=== PATIENT | male | born 1990 | race Caucasian/White ===

== ENCOUNTER 2016-11-07 06:51 | Emergency (ER) | payer BC ==
[~2016-11-07] VITALS: Ht 180.3 cm; Wt 74.0 kg
[2016-11-07 07:02] VITALS: TEMP 36.7; Ht 180.3 cm; Wt 74.0 kg
[2016-11-07] MEDS ORDERED: SODIUM CHLORIDE 0.9% 1000ML 1,000 ML IV STA (07:19)
[2016-11-07] MEDS ORDERED: KETOROLAC TROMETHAMINE 30 MG/ML VIAL IV STA (07:19)
--- NOTE | 2016-11-07 07:25 | EMERGENCY ROOM VISIT NOTE ---
History First contact with patient: 07:09 Chief Complaint: FACIAL PAIN/INJURY Stated Complaint: SWOLLEN LEFT CHEEK History of Present Illness The patient is a 26 year old male who presents to the Emergency Room with complaints of left-sided facial swelling and pain that started 2 days ago. Patient states it initially felt like he was getting a pimple on his left cheek , however it never came to a head and began to get more swollen and painful since last night. He describes the pain as throbbing, constant, 5/10. He has taken ibuprofen and applied ice with no improvement. He denies any dental pain or issues inside the mouth, denies any drainage. He denies any fevers or chills , nausea/vomiting, difficulty swallowing or breathing, tongue or throat swelling , breath, chest pain, dizziness or passing out. He states that his tetanus is up-to-date, received 2 years ago. He does not use any tobacco products. Review of Systems A complete 10 point review of systems was reviewed with the patient with pertinent positives and negatives as per history of present illness. All else were negative. Social History Smoking Status: Never Smoker Current/Historical Medications Scheduled Amoxicillin & Pot Clavulanate (Augmentin 875-125 mg), 1 TAB PO BID Allergies Coded Allergies: No Known Allergies (Unverified , 11/07/16) Physical Exam Vital Signs Date Time Temp Pulse Resp B/P (MAP) Pulse Ox O2 Delivery O2 Flow Rate FiO2 11/07/16 08:28 88 137/78 98 Room Air 11/07/16 07:02 36.7 110 20 135/71 97 Room Air Physical Exam CONSTITUTIONAL: No acute distress. Well appearing and well nourished. Alert and oriented X 4 with normal affect. HEENT: Normocephalic, atraumatic. Pupils equal, round and reactive to light, EOMI. TMs normal. Pharynx normal. Moist mucous membranes. No dental caries, fractures, periapical abscess, or acute gingivitis noted within the mouth. No edema of the mouth floor. FACE: There is moderate swelling of the left face just lateral to the mouth extending up into the cheek, mild erythema and induration, no definite fluctuance, tender to palpation. No sinus tenderness to palpation. NECK: Supple, full active range of motion without discomfort. RESPIRATORY: Clear to auscultation bilaterally with no wheezing, crackles, rhonchi or stridor. Equal expansion bilaterally. CARDIOVASCULAR: Regular rate and rhythm with no murmurs, rubs or gallops. Normal peripheral perfusion. No edema. GASTROINTESTINAL: Soft, nontender, nondistended. Bowel sounds present in all quadrants. MUSCULOSKELETAL: Full range of motion of all joints without discomfort. INTEGUMENTARY: No rash or other significant dermatologic conditions noted. NEUROLOGIC: Cranial nerves II-XII grossly intact. No focal neurologic deficits noted. Normal speech. Medical Decision & Procedures Laboratory Results 11/07/16 07:29 Red Blood Count 5.25, Mean Corpuscular Volume 83.2, Mean Corpuscular Hemoglobin 29.3, Mean Corpuscular Hemoglobin Concent 35.2, Mean Platelet Volume 11.4, Neutrophils (%) (Auto) 61.9, Lymphocytes (%) (Auto) 22.0, Monocytes (%) (Auto) 13.4, Eosinophils (%) (Auto) 2.3, Basophils (%) (Auto) 0.2, Neutrophils # (Auto ) 6.90, Lymphocytes # (Auto) 2.45, Monocytes # (Auto) 1.49, Eosinophils # (Auto ) 0.26, Basophils # (Auto) 0.02 11/07/16 07:29 Test 11/07/16 07:29 White Blood Count 11.14 K/uL (4.8-10.8) Red Blood Count 5.25 M/uL (4.7-6.1) Hemoglobin 15.4 g/dL (14.0-18.0) Hematocrit 43.7 % (42-52) Mean Corpuscular Volume 83.2 fL (80-100) Mean Corpuscular Hemoglobin 29.3 pg (25-34) Mean Corpuscular Hemoglobin Concent 35.2 g/dl (32-36) Platelet Count 162 K/uL (130-400) Mean Platelet Volume 11.4 fL (7.4-10.4) Neutrophils (%) (Auto) 61.9 % Lymphocytes (%) (Auto) 22.0 % Monocytes (%) (Auto) 13.4 % Eosinophils (%) (Auto) 2.3 % Basophils (%) (Auto) 0.2 % Neutrophils # (Auto) 6.90 K/uL (1.4-6.5) Lymphocytes # (Auto) 2.45 K/uL (1.2-3.4) Monocytes # (Auto) 1.49 K/uL (0.11-0.59) Eosinophils # (Auto) 0.26 K/uL (0-0.5) Basophils # (Auto) 0.02 K/uL (0-0.2) RDW Standard Deviation 37.5 fL (36.4-46.3) RDW Coefficient of Variation 12.4 % (11.5-14.5) Immature Granulocyte % (Auto) 0.2 % Immature Granulocyte # (Auto) 0.02 K/uL (0.00-0.02) Anion Gap 9.0 mmol/L (3-11) Est Creatinine Clear Calc Drug Dose 107.4 ml/min Estimated GFR () 107.6 Estimated GFR (Non- 92.8 BUN/Creatinine Ratio 19.6 (10-20) Calcium Level 9.0 mg/dl (8.5-10.1) Medications Administered Medications (Trade) Dose Ordered Sig/Manish Route Start Time Stop Time Status Last Admin Dose Admin Ampicillin Sodium/ Sulbactam Sodium 3000 mg/Sodium Chloride 108 ml @ 200 mls/hr ONE ONCE IV 11/07/16 07:30 11/07/16 08:02 DC 11/07/16 07:40 200 MLS/HR Ketorolac Tromethamine (Toradol Inj) 15 mg NOW STAT IV 11/07/16 07:19 11/07/16 07:23 DC 11/07/16 07:39 15 MG Sodium Chloride 1,000 ml @ 999 mls/hr Q1H1M STAT IV 11/07/16 07:19 11/07/16 08:19 DC 11/07/16 07:39 999 MLS/HR Procedure I examined the patient. Verbal consent was obtained to perform the procedure. Bedside ultrasound was used to identify and localize the fluid collection. After chlorhexidine cleansing, a 20-gauge needle was gently inserted into the abscess with constant back pressure on a 3 mL syringe. A small amount of purulent material was aspirated. Additional purulent drainage was expressed by light pressure. The patient reported immediate improvement of his pain. The area was cleaned with sterile saline and dressed with bacitracin and a sterile gauze bandage. The patient tolerated the procedure well. Medical Decision CC: Patient presenting with complaint of facial swelling and pain Interpretation of Labs: Mild leukocytosis with shift, no anemia, mild hyperglycemia, no other significant electrolyte abnormalities, normal renal function. Differential Diagnosis: Includes, but not limited to cellulitis, abscess, dental infection, sinusitis, among others. Medication Reconciliation: I attest that I have personally reviewed the patient' s current medication list. Vital signs review: I reviewed the patient's vital signs and interpret them as follows: T: Afebrile; BP: Normotensive; HR: Tachycardic; RR: Within normal limits; Pulse Ox: Within normal limits on room air. Summary: Patient was evaluated at bedside, history of physical exam performed. He is tachycardic, which he states is because he is nervous and hospitals. Patient is alert and cooperative, no acute distress. Moderate swelling and erythema to the left face extending from the mouth to the mid left cheek. Orders were placed at bedside for labs, IV fluid, IV Unasyn, Toradol to evaluate and treat for facial cellulitis. Labs reviewed as above, no significant abnormalities. Needle aspiration and drainage of the abscess with ultrasound guidance, with improvement in pain. See procedure note for more details. Patient discussed with Dr. Ramesh, who agrees with my assessment and plan. Patient reassessed multiple times throughout ED stay, the patient remained well- appearing and reports improved pain. Tachycardia resolving after IV fluids. Patient was updated on all results and plan for discharge home. He was encouraged to follow closely with his PCP in the next 2-3 days for recheck. He verbalized understanding. Patient discharged home in stable condition. Impression Primary Impression: Cellulitis and abscess of face Departure Information Dispostion Home / Self-Care Condition GOOD Prescriptions Amoxicillin & Pot Clavulanate (Augmentin 875-125 mg) 1 Tab Tab 1 TAB PO BID for 10 Days, #20 TAB Prov: Roxana Coello CRNP 11/07/16 Referrals No Doctor, Assigned (PCP) Patient Instructions ED Cellulitis Facial, ED Diet High Potassium, [employer] Additional Instructions You were seen in the Emergency Department for facial cellulitis. You have been prescribed Augmentin to be taken twice a day for 10 days. This medication is an antibiotic. Stop these medications and contact a medical provider if you were to develop any significant adverse side effects including: wheezing, shortness of breath, passing out, vomiting, or a diffuse rash. Always take antibiotics as directed and COMPLETE the ENTIRE course regardless of the improvement of your symptoms. Diarrhea often occurs with some antibiotics, you may take a probiotic or eat yogurt daily while you're on this medication to help prevent diarrhea. Look for signs of worsening infection of the wound including: increased pain, swelling, foul discharge, streaking, or fevers/chills/feeling ill. If any of these are noticed you should return to the Emergency Department for further assessment and treatment. For pain control, you can use the following [id number] medicines (if >12 yo): - Extra strength (500mg/tab) Tylenol (acetaminophen) 1-2 tabs every 6-8 hours as needed. Do not exceed 6 tablets in a 24 hour period. Avoid taking more than 3 grams (3000 mg) of Tylenol per day. This includes any other sources of acetaminophen you may take on a regular basis. - Regular strength (200 mg/tab) Advil (ibuprofen) 1-2 tabs every 4-6 hours as needed. Do not exceed a dose of 3200 mg per day. Apply warm compresses to the area to help with pain and also to help improve the infection. Follow up with your PCP in 2 days for recheck, or sooner for worsening symptoms. Return to the emergency department if your symptoms worsen despite treatment course outlined above.
[2016-11-07] MEDS ORDERED: AMPICILLIN/SULBACTAM SOD INJ 3,000 MG in SODIUM CHLORIDE 0.9% 100ML 100 ML IV ONE (07:30)
[2016-11-07 07:48] LABS: BASO % 0.2 %; BASO ABS # 0.02 K/uL (0-0.2); COMPLETE YES; EOS % 2.3 %; HEMATOCRIT 43.7 % (42-52); IG% 0.2 %; LYMPH ABS # 2.45 K/uL (1.2-3.4); MEAN CELL VOLUME 83.2 fL (80-100); MEAN CORPUSCULAR HEMOGLOBIN 29.3 pg (25-34); MEAN CORPUSCULAR HGB CONC 35.2 g/dl (32-36); MEAN PLATELET VOLUME 11.4 fL (7.4-10.4); MONO % 13.4 %; NEUT % 61.9 %; PLATELET COUNT 162 K/uL (130-400); RED BLOOD COUNT 5.25 M/uL (4.7-6.1); WHITE BLOOD COUNT 11.14 K/uL (4.8-10.8)
[2016-11-07 08:02] LABS: BUN/CREATININE RATIO 19.6 (10-20); CREATININE 1.1 mg/dl (0.60-1.40); POTASSIUM 3.2 mmol/L (3.5-5.1)
[2016-11-07] MEDS ORDERED: AMOX875T PO (08:10)
[2016-11-07 08:28] VITALS: BP 137/78; PULSE 88; O2SAT 98
[2016-11-07] MEDS ORDERED: IBUP-103 PO (16:51)
[2016-11-07] MEDS ORDERED: SULF800T23 PO (19:15)
== END 2016-11-07 08:43 | disposition home or self-care (01) ==
LOC: C.EDB 06:53
DX: L03.211 Cellulitis of face (principal)

== ENCOUNTER 2016-11-07 15:54 | Emergency (ER) | payer BC ==
[~2016-11-07] VITALS: Ht 180.3 cm; Wt 74.2 kg
[~2016-11-07 15:54] MED LIST: AMOX875T PO
[2016-11-07 16:18] VITALS: TEMP 37.1; Ht 180.3 cm; Wt 74.2 kg
[2016-11-07] MEDS ORDERED: IBUP-103 PO (16:51)
[2016-11-07] MEDS ORDERED: CEFTRIAXONE SOD INJ 1 GM ADDVIAL IV STA (17:05)
[2016-11-07] MEDS ORDERED: SULFAMETHOXAZOLE/TRIMETHOPRIM DS 800/160MG TAB PO STA (17:05)
[2016-11-07] MEDS ORDERED: OPTIRAY 320 IV PRN (17:45)
--- NOTE | 2016-11-07 18:44 | DIAGNOSTIC IMAGING REPORT ---
MAXILLOFACIAL CT CLINICAL HISTORY: 26-year-old male with left-sided facial swelling and clinical concern for abscess. TECHNIQUE: Multidetector CT imaging of the face was performed after the administration of intravenous contrast. IV contrast: 94 mL of Omnipaque 320. COMPARISON: None. CT DOSE: 127.77 mGy.cm FINDINGS: [employer] topogram: Unremarkable. Rim-enhancing centrally hypodense 8 mm collection in the subcutaneous soft tissue of the left face overlying the left maxilla/mandible. Surrounding soft tissue infiltration and overlying skin thickening. Subjacent edema of the superficial muscles of the face. No dental caries or periapical lucencies are apparent to suggest an odontogenic source of infection. No osseous erosion. Few prominent submandibular lymph nodes, likely reactive. Vessels patent. Orbits normal. Limited intracranial evaluation within normal limits. IMPRESSION: Subcentimeter subcutaneous collection overlying the left maxilla/mandible concerning for small abscess. The source of this infection is not odontogenic. Electronically signed by: Juvenal Henry M.D. 11/07/2016 6:43 PM Dictated Date/Time: 11/07/2016 6:35 PM
[2016-11-07] MEDS ORDERED: SULF800T23 PO (19:15)
--- NOTE | 2016-11-07 19:15 | EMERGENCY ROOM VISIT NOTE ---
ED Visit Note First contact with patient: 16:53 CHIEF COMPLAINT: Worsening left-sided facial infection since this morning HISTORY OF PRESENT ILLNESS: Patient is a 26-year-old white male who returns to the emergency department for evaluation of an infection involving the left side of his face. He was seen and treated here earlier today for the same symptoms. Patient relates that 2 days ago, he noticed a sensation that he was getting a "deep pimple" off of the corner of his mouth on the left-hand side. He states that he squeezed it slightly, but did not manipulate it significantly. He notes that it progressively worsened over the last 2 days, causing left-sided facial swelling which prompted him to come to the emergency department early this morning. He was given a dose of Unasyn, and a needle aspiration was performed which yielded a scant amount of purulent material. The patient notes that he left here around 0 9:30 this morning. He applied a warm compress, took 600 mg of Motrin and one dose of Augmentin 875 mg when he got home. He states that the face has "doubled in size." He notes his in instructions told him to return to the emergency department for worsening swelling. He does note that he squeezed the area when he got home and still got a little additional pus. He has not had any fevers. He denies any prior history of skin infections or abscesses. REVIEW OF SYSTEMS: Review of systems as per HPI. All other systems reviewed were negative. 10 systems reviewed. PMH: Electronic medical records are reviewed and summarized as above/below. See Problem List. SOCIAL HISTORY: Patient is a college student who lives in an apartment. Nonsmoker. PHYSICAL EXAM: Vital Signs: Reviewed Nurse's notes. Temperature 37.1C orally. GENERAL: Patient is a well-appearing 26-year-old white male who is awake and alert and in no acute distress. HEENT: Normocephalic, atraumatic. Pupils equal, round, reactive to light and accommodation. EOMs intact without nystagmus. Sclera are anicteric. Tympanic membranes intact, with normal landmarks. External canals are clear. Oral and nasopharynx are clear. Mucous membranes are moist. FACE: Examination of the patient's face show erythema, tenderness and induration , just off of the corner of the left side of the mouth, with surrounding soft tissue swelling. There is no pointing or fluctuance appreciated. NECK: Supple, no lymphadenopathy appreciated. EMERGENCY DEPARTMENT COURSE: The patient was seen and evaluated as above. His prior ED record from earlier today was reviewed. IV lock was initiated. Patient was given Rocephin 1 g IV and Bactrim DS [address] scan of the face was obtained. Findings are consistent with a subcentimeter abscess with resultant inflammatory changes in the left side of the face. Patient was made aware of the results of his CT scan. He has a small abscess, appears to have dermatologic origin, he has resultant soft tissue swelling and inflammatory changes in the left side of the face. There is no drainable abscess at this time. He does not have any evidence to suspect Keegan's angina or deep space infection of the face or the neck. The patient was reassured that he has not been on antibiotics long enough to see any significant changes. He was encouraged to apply warm compresses to the area. He was placed on Bactrim in addition to the Augmentin which he was prescribed earlier today. He was educated on the worrisome signs or symptoms for which he should return to the emergency department, including but not limited to fevers, vomiting, spreading redness, neck pain or stiffness, or if his symptoms have not significantly improved in 48 hours. Patient expressed understanding of this and was agreeable. He was discharged home in good condition. MAXILLOFACIAL CT CLINICAL HISTORY: 26-year-old male with left-sided facial swelling and clinical concern for abscess. TECHNIQUE: Multidetector CT imaging of the face was performed after the administration of intravenous contrast. IV contrast: 94 mL of Omnipaque 320. COMPARISON: None. CT DOSE: 127.77 mGy.cm FINDINGS: [employer]ribe topogram: Unremarkable. Rim-enhancing centrally hypodense 8 mm collection in the subcutaneous soft tissue of the left face overlying the left maxilla/mandible. Surrounding soft tissue infiltration and overlying skin thickening. Subjacent edema of the superficial muscles of the face. No dental caries or periapical lucencies are apparent to suggest an odontogenic source of infection. No osseous erosion. Few prominent submandibular lymph nodes, likely reactive. Vessels patent. Orbits normal. Limited intracranial evaluation within normal limits. IMPRESSION: Subcentimeter subcutaneous collection overlying the left maxilla/mandible concerning for small abscess. The source of this infection is not odontogenic. Current/Historical Medications Scheduled Amoxicillin & Pot Clavulanate (Augmentin 875-125 mg), 1 TAB PO BID Sulfa/Trimethoprim (Bactrim Ds 800MG/160MG), 1 TAB PO BID Scheduled PRN Ibuprofen Tab (Advil), 400-600 MG PO Q6H PRN for Pain Allergies Coded Allergies: No Known Allergies (Unverified , 11/07/16) Vital Signs Date Time Temp Pulse Resp B/P (MAP) Pulse Ox O2 Delivery O2 Flow Rate FiO2 11/07/16 19:28 99 16 150/81 99 11/07/16 18:25 88 20 124/80 98 11/07/16 16:18 37.1 111 18 132/74 98 Room Air Medications Administered Medications (Trade) Dose Ordered Sig/Manish Route Start Time Stop Time Status Last Admin Dose Admin Ceftriaxone Sodium (Rocephin Inj) 1 gm NOW STAT IV 11/07/16 17:05 11/07/16 17:06 DC 11/07/16 17:26 1 GM Trimethoprim/ Sulfamethoxazole (Septra Ds 800/ 160MG Tab) 1 tab NOW STAT PO 11/07/16 17:05 11/07/16 17:06 DC 11/07/16 17:27 1 TAB Departure Information Impression Primary Impression: Cellulitis and abscess of face Prescriptions Sulfa/Trimethoprim (Bactrim Ds 800MG/160MG) Tab 1 TAB PO BID, #20 TAB Prov: Carley Bledsoe PA 11/07/16 Referrals No Doctor, Assigned (PCP) Patient Instructions [facility] Additional Instructions Trimethoprim-Sulfamethoxazole(Bactrim DS): Take one pill twice daily for 10 days for your skin infection. All antibiotics can cause diarrhea. If this occurs and you feel worse or it does not resolve in 1-2 days follow up with your doctor or return to the Emergency Department as this could be signs of serious underlying problems. Any medication can cause an allergic reaction, stop the pills immediately and return to the ER for rash, hives, breathing difficulties, or swelling. Amoxicillin Clavulanate (Augmentin) 875mg: Take one pill twice daily for 10 days for your infection. All antibiotics can cause diarrhea. If this occurs and you feel worse or it does not resolve in 1-2 days follow up with your doctor or return to the Emergency Department as this could be signs of serious underlying problems. Any medication can cause an allergic reaction, stop the pills immediately and return to the ER for rash, hives, breathing difficulties, or swelling. Ibuprofen(Motrin, Advil) may be used for fever or pain. Use 600mg every six hours as needed. Take with food. Avoid using more than 2400mg in a 24 hour period. Do not use 2400mg per day for more than three consecutive days without physician direction. Prolonged inappropriate use can lead to stomach upset or ulcers. (AND/OR) Acetaminophen(Tylenol) may be used for fever or pain. Use 1000mg every six hours as needed. Avoid using more than 3000mg in a 24 hour period. Warm compresses to the affected area 4 times daily for 15-20 minutes. Rest and drink plenty of fluids. Continue current medications. Return to the ER for severe pain, persistent fevers, spreading redness, or any worsening of your condition. Follow up with your primary physician within 2-3 days for a recheck of the current condition.
[2016-11-07 19:28] VITALS: BP 150/81; PULSE 99; O2SAT 99
== END 2016-11-07 18:30 | disposition home or self-care (01) ==
LOC: C.EDB 15:55 → C.EDA 18:30
DX: L03.211 Cellulitis of face (principal); L02.01 Cutaneous abscess of face